=== PATIENT | female | born 2000 | race Two or more races ===

== ENCOUNTER 2025-07-19 09:30 | Emergency (ER) | payer BC ==
[2025-07-19 09:56] LABS: Bacteria/HPF Rare-Few HPF (None Seen); CAUTI Indications for Culture Pelvic or flank pain; Glucose, Urine (Dipstick) Normal (Negative); Leukocyte 500 Leu/uL (Negative); Protein, Urine (Dipstick) Negative (Neg-Trace); RBC/HPF None Seen HPF (0-3); Specific Gravity, Urine 1.020 (1.002-1.036); WBC/HPF Greater than 50 HPF (0-3)
[2025-07-19 09:57] LABS: Urine Culture Reflex Yes Yes
[2025-07-19 10:04] LABS: Pregnancy Test - Urine (BHCG) Negative (Negative); Pregu Control Background? CLEAR/WHITE (CLR/WHITE); Pregu Control Bar Appear? YES (CONTROL BAR)
== END 2025-07-19 10:14 | disposition home or self-care (01) ==
LOC: ERS 09:30
DX: N39.0 Urinary tract infection, site not specified (principal)
CPT/HCPCS: 81001; 81025; 87077; 87086; 99284